=== PATIENT | male | born 1990 | race Caucasian/White ===

== ENCOUNTER 2018-06-19 23:55 | Emergency (ER) | payer SELFPAY ==
[2018-06-19] MEDS ORDERED: ETOMIDATE 20 MG/10 ML VIAL IV ONE (23:56)
[2018-06-19] MEDS ORDERED: SUCCINYLCHOLINE 20 MG/ML (10 ML) IV ONE (23:56)
[2018-06-20] MEDS ORDERED: TETANUS & DIPHTHERIA TOX,ADULT 0.5 ML VIAL ONE (00:49)
[2018-06-20] MEDS ORDERED: RSI MEDICATION KIT IV ONE ×2 (01:11→01:14)
[2018-06-20] MEDS ORDERED: NA CHLORIDE 0.9% 1,000 ML ONE (01:14)
[2018-06-20] MEDS ORDERED: PROPOFOL 1,000 MG/100 ML VIAL IV ONE (01:22)
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
[2018-06-20 01:37] LABS: Absolute Lymphocytes (CBC) 4.2 K/uL (0.7-4.9); Absolute Monocytes 0.9 K/uL (0.1-1.3); Absolute Neutrophil 8.1 K/uL (1.8-8.0); Basophils % 0.5 % (0-1.3); Eosinophils % 1.6 % (0-4.4); Hematocrit 45.6 % (39.6-49.0); Lymphocytes % 31.2 % (15.3-44.8); MPV 7.7 fL (7.6-11.3); Monocytes % 6.7 % (3.3-12.3); RBC Red Blood Cell Count 5.23 M/uL (4.33-5.43)
[2018-06-20 01:41] LABS: BUN Blood Urea Nitrogen 16 mg/dL (7-18); Bicarbonate 25 mmol/L (21-32); Glucose Level 133 mg/dL (74-106); Potassium 3.3 mmol/L (3.5-5.1); Sodium Level 147 mmol/L (136-145)
[2018-06-20] MEDS ORDERED: MANNITOL 25% 50 ML IV ONE (01:54)
--- NOTE | 2018-06-22 11:21 | RAD REPORT ---
EXAM DESCRIPTION: CT - Head C Spine Mpr Wo Con - 06/20/2018 1:14 am CLINICAL HISTORY: 28 years Male, tube placement COMPARISON: None. TECHNIQUE: Single portable view of the chest performed on 06/20/2018 at 1:18 AM FINDINGS: The lungs are well expanded and are clear. There is no evidence of a pneumothorax. The cardiac silhouette is normal in size and configuration. The mediastinal contours are normal. No acute osseous abnormality is identified. No focal soft tissue abnormalities are seen. Lines and tubes: The tip of the endotracheal tube terminates along the inferior clavicular heads. T he feeding tube extends below the diaphragm and appears to terminate in the left upper quadrant in th e region of the stomach. IMPRESSION: 1. No evidence of acute intrathoracic disease. 2. Endotracheal tube and feeding tube in grossly satisfactory position. Electronically signed by: Simran Rizzo DO 06/20/2018 1:37 AM R[facility]TE RIDER Due to temporary technical issues with the PACS/Fluency reporting system, reports are being signed by the in house radiologist as a courtesy to ensure prompt reporting. The interpreting radiologist is f ully responsible for the content of the report.
--- NOTE | 2018-06-22 11:29 | RAD REPORT ---
EXAM DESCRIPTION: RAD - Chest Single View - 06/20/2018 1:25 am CLINICAL HISTORY: 28 years Male, tube placement COMPARISON: None. TECHNIQUE: Single portable view of the chest performed on 06/20/2018 at 1:18 AM FINDINGS: The lungs are well expanded and are clear. There is no evidence of a pneumothorax. The cardiac silhouette is normal in size and configuration. The mediastinal contours are normal. No acute osseous abnormality is identified. No focal soft tissue abnormalities are seen. Lines and tubes: The tip of the endotracheal tube terminates along the inferior clavicular heads. T he feeding tube extends below the diaphragm and appears to terminate in the left upper quadrant in th e region of the stomach. IMPRESSION: 1. No evidence of acute intrathoracic disease. 2. Endotracheal tube and feeding tube in grossly satisfactory position. Electronically signed by: Simran Rizzo DO 06/20/2018 1:37 AM [facility] Due to temporary technical issues with the PACS/Fluency reporting system, reports are being signed by the in house radiologist as a courtesy to ensure prompt reporting. The interpreting radiologist is f ully responsible for the content of the report.
== END 2018-06-20 02:40 | disposition short-term general hospital (02) ==
LOC: ER 23:55
PROC: 0BH17EZ Insertion of Endotracheal Airway into Trachea, Via Natural or Artificial Opening (ICD-10-PCS; principal; 2018-06-20)
DX: S06.5X9A Traumatic subdural hemorrhage with loss of consciousness of unspecified duration, initial encounter (principal); S06.6X9A Traumatic subarachnoid hemorrhage with loss of consciousness of unspecified duration, initial encounter; F41.9 Anxiety disorder, unspecified; Y04.2XXA Assault by strike against or bumped into by another person, initial encounter; Y93.89 Activity, other specified; Y92.89 Other specified places as the place of occurrence of the external cause
CPT/HCPCS: 31500; 36415; 51702; 70450; 71045; 72125; 80048; 85025; 90714; 94002; 99285; J0330; J2150; J2704; J7030